=== PATIENT | female | born 1970 | race Caucasian/White ===

== ENCOUNTER 2019-01-26 09:48 | Outpatient (CLI) | payer OTHER ==
--- NOTE | 2019-01-26 10:57 | MRI ---
MRI OF THE LEFT RING FINGER WITHOUT IV CONTRAST: INDICATION: History of fall with left ring finger injury COMPARISON: Left ring finger radiographs dated December 11, 2018. FINDINGS: There is bowstringing of the flexor tendons at the level of the proximal phalanx with nonvisualizatio n of a normal A2 horacio consistent with a disruption of the A2 horacio and bowstringing. The FDS and FDP tendons are intact. There is also palmar displacement of the volar plate of the ring finger P IP joint with suspicion for an avulsion injury of the proximal palmar capsule of the PIP joint best seen on image 12 of series 7. There is a joint effusion at the PIP joint. No acute fracture is eviden t. There is flexor tenosynovitis involving the ring finger. The extensor tendons appear intact. There is mild ECU tenosynovitis. Small ganglion is adjacent to the ulnar neural vasculature travellin g near the pisiform triquetral articulation measuring 3.6 mm. IMPRESSION: 1. Findings consistent with a complete A2 horacio injury with bowstringing of the FDS and FDP tendons at the level of the left ring finger proximal phalanx. 2. Mild grade II sprain of the proximal palmar left ring finger PIP joint capsule. 3. Mild ECU tenosynovitis 4. Small ganglion extending medially off of the pisiform triquetral articulation, adjacent to the uln ar neural vasculature. Transcribed Date/Time: 01/26/2019 11:36 AM
== END 2019-01-26 09:49 | disposition home or self-care (01) ==
LOC: BICMRI 09:48
PROVIDERS: ATTEND Family Medicine
DX: S66.195A Other injury of flexor muscle, fascia and tendon of left ring finger at wrist and hand level, initial encounter (principal); S63.615A Unspecified sprain of left ring finger, initial encounter; M65.842 Other synovitis and tenosynovitis, left hand; M67.442 Ganglion, left hand

== ENCOUNTER 2019-02-23 13:27 | Outpatient (CLI) | payer OTHER ==
--- NOTE | 2019-02-23 15:02 | RAD ---
XR Lumbar Spine 2 Or 3 View: 02/23/2019 12:00 AM CLINICAL INDICATION: Low back pain COMPARISON: None. FINDINGS: Fracture:No fracture. Mild right convexity curvature centered at the L3 level. Arthropathy:Multilevel degenerative change of lumbar spine is present including disc space narrowing, endplate sclerosis, and osteophytosis and facet osteoarthritis. Incidental findings:Atherosclerosis IMPRESSION: 1. No acute osseous abnormality. 2. Multilevel mvwl-[id number]-[id number] degenerative change.
--- NOTE | 2019-02-23 15:03 | RAD ---
EXAM: XR Knee Lt 4 View STANDARD PROVIDED CLINICAL HISTORY: Pain COMPARISON: 11/24/2015 FINDINGS: Interval changes of left total knee arthroplasty without evidence for hardware loosening or migration . Presumed epiphysiodesis changes are again seen. No evidence for fracture or other acute osseous abnormality. No evidence for significant knee joint capsular distention. IMPRESSION: Left total knee arthroplasty without evidence for hardware complication.
--- NOTE | 2019-02-23 15:04 | RAD ---
XR Knee Rt 4 View STANDARD: 02/23/2019 12:00 AM CLINICAL INDICATION: Pain of right knee COMPARISON: 03/28/2016 FINDINGS: Right knee arthroplasty is in place, without hardware complication. No acute fracture. Sclerotic dens ity of the distal femur is stable, likely a bone island. IMPRESSION: No acute osseous abnormality, of the postoperative right knee.
== END 2019-02-23 13:28 | disposition home or self-care (01) ==
LOC: BICRAD 13:27
DX: M54.5 Low back pain (principal); M25.561 Pain in right knee; M25.562 Pain in left knee; G89.4 Chronic pain syndrome; M19.90 Unspecified osteoarthritis, unspecified site; M47.816 Spondylosis without myelopathy or radiculopathy, lumbar region; Z96.651 Presence of right artificial knee joint; Z96.652 Presence of left artificial knee joint
CPT/HCPCS: 72100

== ENCOUNTER 2019-05-10 06:29 | Outpatient (CLI) | payer OTHER ==
[2019-05-10 13:52] LABS: #Basophils 0.1 thou/uL (0.0-0.2); #Eosinphils 0.2 thou/uL (0.0-0.7); #Lymphocytes 3.1 thou/uL (1.20-3.40); #Monocytes 0.8 thou/uL (0.11-0.59); #Neutrophils 5.1 thou/uL (1.40-6.50); %Basophils 0.9 % (0.0-1.0); %Eosinophils 1.8 % (0.0-10.0); %Lymphocytes 33.6 % (21.0-51.0); %Monocytes 9.1 % (0.0-10.0); %Neutrophils 54.6 % (42.0-75.0); Hemoglobin 15.6 g/dL (12.0-16.0); Mean Corpuscular Hemoglobin 29.8 pg (27.0-31.0); Mean Corpuscular Volume 90.3 fL (78.0-98.0); Mean Platelet Volume 7.6 fL (7.4-10.4); Platelet Count 289 thou/uL (130-400); Red Blood Cell (RBC) Count 5.24 mill/uL (4.20-5.40); White Blood Cell (WBC) Count 9.3 thou/uL (4.8-10.8)
[2019-05-10 14:06] LABS: Bilirubin Negative (Negative); Blood, Urine 1+ (Negative); Clarity Turbid (Clear); Glucose, Urine (Dipstick) Normal (Negative); Leukocyte 25 Leu/uL (Negative); Nitrite Negative (Negative); Protein, Urine (Dipstick) 10 mg/dL (Neg-Trace); Urobilinogen Normal mg/dL (Less than 2); WBC/HPF 0-3 HPF (0-3)
[2019-05-10 14:08] LABS: Bacteria/HPF 1+ HPF (None Seen)
[2019-05-10 14:28] LABS: Anion Gap 12 mmol/L (10-20); BUN (Urea Nitrogen) 12 mg/dL (7.0-18.7); Calc. Creatinine Clearance 0 mL/min (70-130); Calcium 9.5 mg/dL (7.8-10.44); Carbon Dioxide 29 mmol/L (22-29); Chloride 103 mmol/L (98-107); Estimated GFR-MDRD 78; Glucose 124 mg/dL (70-105); Potassium 3.9 mmol/L (3.5-5.1); Sodium 140 mmol/L (136-145)
--- NOTE | 2019-05-11 17:57 | EKG ---
Test Reason : Blood Pressure : / mmHG Vent. Rate : 088 BPM Atrial Rate : 088 BPM P-R Int : 148 ms QRS Dur : 084 ms QT Int : 366 ms P-R-T Axes : 064 056 051 degrees QTc Int : 442 ms Normal sinus rhythm Cannot rule out Anterior infarct , age undetermined Abnormal ECG Confirmed by Khurram GONZALEZ ([id number]) on 05/11/2019 5:56:33 PM Referred By: BIRD Confirmed By:Khurram GONZALEZ
== END 2019-05-10 06:30 | disposition home or self-care (01) ==
LOC: LABBT 06:29
PROVIDERS: ATTEND Orthopaedic Surgery Hand Surgery
DX: Z01.818 Encounter for other preprocedural examination (principal); M24.50 Contracture, unspecified joint; S69.81XA Other specified injuries of right wrist, hand and finger(s), initial encounter
CPT/HCPCS: 80048; 81001; 85025; 93005; 93010

== ENCOUNTER 2019-05-14 11:57 | Day surgery (SDC) | payer OTHER ==
[2019-05-10 11:34] VITALS: BMI 43.7
[~2019-05-14 11:57] MED LIST: Dexamethasone 20 MG/5 ML VIAL ONE; Glycopyrrolate 0.2 MG/ML 5 ML SYRINGE ONE; Ketorolac Tromethamine 30 MG/ML VIAL ONE; Ondansetron PF 4 MG/2 ML Vial ONE; PROPOFOL 200 MG/20 ML VIAL ONE; Rocuronium Bromide 10 MG/ML (10ML VIAL) ONE
[2019-05-14] MEDS ORDERED: Betamet Acet/Betamet Na Ph 30 MG/5 ML VIAL ONE (12:50)
[2019-05-14] MEDS ORDERED: Bupivacaine PF 0.5% 30 ML VIAL ONE (12:50)
[2019-05-14] MEDS ORDERED: Bacitracin Zinc Ointment 30 gm TUBE ONE (12:50)
[2019-05-14] MEDS ORDERED: Morphine 10 MG/ML VIAL ONE (13:07)
[2019-05-14] MEDS ORDERED: Clindamycin/D5W 900 mg/50 ml Premix Bag ONE (14:18)
[2019-05-14] MEDS ORDERED: Ketorolac Tromethamine 30 MG/ML VIAL ONE (18:14)
[2019-05-14] MEDS ORDERED: HYDROcodone/Acetaminophen 5/325 mg Tablet ONE (19:06)
--- NOTE | 2019-05-14 20:03 | RAD ---
Intraoperative imaging of the left fingers: 05/14/2019 COMPARISON: None HISTORY: Tendon graft FINDINGS: Percutaneous pin overlies the fourth proximal interphalangeal joint. IMPRESSION: Intraoperative imaging as above.
--- NOTE | 2019-05-15 08:59 | OP ---
DATE OF PROCEDURE: 05/14/2019 PREOPERATIVE DIAGNOSES: 1. Left palmar joint contracture, PIP joint, ring finger. 2. Contracture with loss of extension of -50 degrees, fixed, left ring finger PIP joint. 3. Boutonniere, left ring finger PIP joint. 4. Vestigial A2 horacio, where only the proximal one cord is intact, it is there, although there is a tendon sheath, there is no horacio visualized. PROCEDURES PERFORMED: 1. Volar capsulectomy with joint release, left ring finger PIP joint. 2. Volar plate release with arthrotomy, left ring finger PIP joint. 3. Digital nerve neuroplasty to radial plus ulnar at the left ring finger. 4. A2 horacio reconstruction using palmaris longus graft: Kleinert technique. 5. Boutonniere repair with PIP joint pinning under C-arm. 6. Use of C-arm. COMPLICATIONS: None. TOURNIQUET TIME: 60 minutes, then down 25 minutes of tourniquet minutes. INDICATIONS FOR PROCEDURE: The patient has reported two months after having axial loading injury, she had inability to extend the finger. Then, when she flexed the finger, she reported that she felt some popping between the PIP and MP joints. 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 INTRAOPERATIVE FINDINGS: [id number] bowstring over the proximal phalanx. DESCRIPTION OF PROCEDURE: After successful general endotracheal anesthesia, the limb was prepped and draped. We outlined both dorsal zigzag incision where its angles were completely opposite of the palmar zigzag incision. We exsanguinated the limb, inflated the tourniquet to 250 mmHg pressure, began with palmar incision. We carried through the skin and subcutaneous tissue medially after identifying the most volar portion of the tendon, we dissected down to the gutters, we performed under magnification. Then, all the neurovascular/digital nerve, radial and ulnar neuroplasty to protect the nerve and create a fascial zone between the neurovascular bundle and the gutters on medial and lateral side and the work area. We then saw that there was no vestigial or remnant of the A2 horacio in the operative ring finger. For this reason, we then performed the release first by approaching it from the ulnar side, having already dissected neurovascular bundle free, we then used a [place] blade to release the volar capsule, check ring ligament, and the volar plate first. We then advanced the volar plate by sharp dissection and completed the capsular release and did not close the arthrotomy once we achieved +10 hyperextension of the digit at the PIP joint. Passive did not affect flexion at any joint. We performed a digital nerve neuroplasty first under magnification both radial and ulnar, and now we noticed that in the proximal volar plate, there was a thickening of capsule, but no true hroacio fibro-osseous tissue was seen, so we decided to perform a Kleinert technique A2 horacio repair with at least 1 cm of horacio and width, so we harvested the palmaris longus tendon beginning at the volar wrist flexion crease, making three small incisions, and we found the muscular tendon junction released and brought it back out of the wound for inspection. We placed 4-0 Prolene on the most narrow end of the [place]. We began to find fibro-osseous remnants. Using the fibro-osseous insertion on the bone as area for tunnel, we made tunnels, passed the 22-gauge wire through and then pulled the wire out from the side. Then, once we had done this, we had 3 weaves of the horacio through fibro-osseous remnant, on top of any remnant of the sheath and it was sutured at each fibro-osseous point, and then to itself at the end. The patient then had a trial run and there was no evidence of subluxation. We released the tourniquet, found hemostasis and excellent capillary refill and then prepared to approach the Boutonniere now that we had 0 degrees and the 5 degrees hyperextension at the PIP joint. We exsanguinated the limb after we closed the donor site of palmaris longus graft and the primary incision wounds. Once this was done, we had a 45 minute downtime in the tourniquet and we felt safe we would reinflate this, so we did so after exsanguination of the limb. This then revealed that we had achieved visualization of a Boutonniere deformity, where the tendon was buckled over and just proximal to the PIP joint, and did not have appropriate tension. We then cut the K-wire short of the skin, and we were able to began by resecting a 2 mm section of the central slip, 2.5 mm proximal to its insertion, and then with the joint held in extension by K-wire to at least 0 degrees if not +5, we did [id number] multiple sutures to bring the appropriate tension and this was tensioned. Now, the Boutonniere repair was completed with a K-wire, and excellent position in frontal and sagittal views with the C-arm, using [id number] multiple pattern. Job ID: [id number]
== END 2019-05-14 19:30 | disposition home or self-care (01) ==
LOC: SDC 11:57
PROVIDERS: ATTEND Orthopaedic Surgery Hand Surgery
PROC: 0RN Upper Joints, Release (ICD-10-PCS; principal; 2019-05-14)
PROC: 0LU707Z Supplement Right Hand Tendon with Autologous Tissue Substitute, Open Approach (ICD-10-PCS; principal; 2019-05-14)
PROC: 01N43ZZ Release Ulnar Nerve, Percutaneous Approach (ICD-10-PCS; principal; 2019-05-14)
PROC: 0LU807Z Supplement Left Hand Tendon with Autologous Tissue Substitute, Open Approach (ICD-10-PCS; principal; 2019-05-14)
DX: M24.542 Contracture, left hand (principal); M20.022 Boutonniere deformity of left finger(s); M67.844 Other specified disorders of tendon, left hand; E78.5 Hyperlipidemia, unspecified; E66.01 Morbid (severe) obesity due to excess calories; F17.210 Nicotine dependence, cigarettes, uncomplicated; F41.9 Anxiety disorder, unspecified; F32.9 Major depressive disorder, single episode, unspecified; K21.9 Gastro-esophageal reflux disease without esophagitis; Z68.41 Body mass index [BMI] 40.0-44.9, adult; Z79.82 Long term (current) use of aspirin; Z79.899 Other long term (current) drug therapy; Z88.0 Allergy status to penicillin
CPT/HCPCS: 76000; J0131; J0702; J1100; J1885; J2270; J2405; J2704; J3490; S0020

== ENCOUNTER 2020-03-21 07:46 | Outpatient (CLI) | payer OTHER ==
--- NOTE | 2020-03-21 08:47 | MRI ---
MRI lumbar spine noncontrast: HISTORY: Lumbar radiculopathy. Low back pain with numbness and tingling down both legs times many years. COMPARISON: None. FINDINGS: Appropriate T1 marrow signal intensity of the lumbar vertebra. Lumbar spine vertebral body height is maintained. No fracture. No significant STIR hyperintensity to suggest vertebral body edema or ligamentous injury. The visualized solid organs and paraspinal muscles have appropriate signal intens ity. Conus medullaris terminates at the L1-L2 disc space. T12-L1:Adequate disc hydration. No posterior disc abnormality. No significant central canal stenosis or significant neural foraminal narrowing. L1-L2:Adequate disc hydration. No posterior disc abnormality. No significant central canal stenosis o r significant neural foraminal narrowing. L2-L3:Adequate disc hydration. No posterior disc abnormality. No significant central canal stenosis o r significant neural foraminal narrowing. L3-L4:Adequate disc hydration. No posterior disc abnormality. No significant central canal stenosis o r significant neural foraminal narrowing. L4-L5:Minimal disc desiccation with mild loss of disc space height. Broad-based disc bulge minimally contacts the ventral thecal sac. No significant central canal stenosis. Right neural foramen is patent. Mild left foraminal narrowing due to disc material. L5-S1:Adequate disc hydration. No posterior disc abnormality. No significant central canal stenosis. Patent bilateral neural foramina. There is bilateral facet hypertrophy. Small amount of fluid in the left facet joint. IMPRESSION: No significant central canal stenosis or significant neural foraminal narrowing throughout the lumbar spine. Additional findings as above. Transcribed Date/Time: 03/21/2020 10:03 AM
== END 2020-03-21 07:47 | disposition home or self-care (01) ==
LOC: BICMRI 07:46
PROVIDERS: ATTEND Anesthesiology Addiction Medicine
DX: M51.16 Intervertebral disc disorders with radiculopathy, lumbar region (principal); M47.27 Other spondylosis with radiculopathy, lumbosacral region; M48.061 Spinal stenosis, lumbar region without neurogenic claudication
CPT/HCPCS: 72148